=== PATIENT | female | born 1985 | race Caucasian/White ===

== ENCOUNTER → 2020-03-25 | Day surgery (SDC) | payer MEDICAID ==
[~2020-03-25] MED LIST: Lidocaine 1% with EPINEPHrine 1:100,000 20 ML MDV ONE
--- NOTE | 2020-03-30 00:50 | OR ---
DATE OF OPERATION: 03/25/2020 PREOPERATIVE DIAGNOSIS: SEBACEOUS CYST, RIGHT SIDE OF THE NECK. POSTOPERATIVE DIAGNOSIS: SEBACEOUS CYST, RIGHT SIDE OF THE NECK. SURGEON: Calros Chopra MD PROCEDURE: WIDE LOCAL EXCISION OF SEBACEOUS CYST, RIGHT SIDE OF THE NECK. ANESTHESIA: Local. SPECIMEN: Cyst. FINDINGS: Sebaceous cyst. The elliptical incision margins measured 1 cm around the cyst and the margins outside of the cyst were 1 mm on each size. The cyst itself was 0.5 cm in diameter. The total elliptical skin, however, was 1 x 0.7 cm. DESCRIPTION OF PROCEDURE: After infiltration of local anesthesia, an elliptical incision was made around a cyst that measured about on palpation 0.5 cm in diameter. This elliptical incision was 1 cm long and there were 1 mm margins around where I could palpate the edge of the cyst, making the width diameter of the excision 0.7 cm. This was taken down full-thickness through the skin. Some of the subcutaneous tissue was then debrided. Hemostasis was controlled with cautery and the wound was closed with a running intracuticular 4-0 Vicryl suture. BPNegro/MIKHAILL /[id number]
== END ==
LOC: CC.SDS 10:03
PROVIDERS: ATTEND Surgery
DX: L72.3 Sebaceous cyst (principal); Z87.891 Personal history of nicotine dependence